=== PATIENT | female | born 1980 | race Native Hawaiian/Other Pacific Islander ===

== ENCOUNTER 2017-11-20 11:51 | Emergency (ER) | payer OTHER ==
[~2017-11-20] VITALS: Ht 162.6 cm; Wt 68.0 kg
[2017-11-20 12:03] VITALS: TEMP 98
[2017-11-20 12:53] LABS: POTASSIUM 3.9 mmol/L (3.6-5.2); SODIUM 138 mmol/L (136-145)
[2017-11-20 15:00] VITALS: BP 147/76
== END 2017-11-20 15:00 | disposition home or self-care (01) ==
LOC: ED 11:51
DX: G43.909 Migraine, unspecified, not intractable, without status migrainosus (principal); M25.561 Pain in right knee
CPT/HCPCS: 36415; 80053; 96360; 99284

== ENCOUNTER 2018-02-12 18:10 | Emergency (ER) | payer OTHER ==
[~2018-02-12] VITALS: Ht 162.6 cm; Wt 68.0 kg
[2018-02-12 18:43] VITALS: TEMP 98.2
[2018-02-12 19:27] LABS: PLATELET COUNT 377 K/uL (152-353)
[2018-02-12 19:32] LABS: POTASSIUM 3.5 mmol/L (3.6-5.2)
[2018-02-12 23:27] VITALS: BP 129/86
== END 2018-02-12 23:27 | disposition home or self-care (01) ==
LOC: ED 18:10
DX: K29.00 Acute gastritis without bleeding (principal); N83.201 Unspecified ovarian cyst, right side; K59.00 Constipation, unspecified; N92.1 Excessive and frequent menstruation with irregular cycle
CPT/HCPCS: 36415; 80053; 81000; 84702; 85027; 96374; 96375; 99284; J1170; J1885; J2175; J2405; Q9963

== ENCOUNTER 2019-07-08 21:03 | Emergency (ER) | payer OTHER ==
[~2019-07-08] VITALS: Ht 162.6 cm; Wt 72.6 kg
[2019-07-08] MEDS ORDERED: HYDR10TA47 PO (21:20)
[2019-07-08] MEDS ORDERED: GABA300C2 PO (21:21)
[2019-07-08] MEDS ORDERED: TRAMADOL HYDROC50 MG PO (21:21)
[2019-07-08 21:53] LABS: PLATELET COUNT 341 K/uL (152-353)
[2019-07-08 22:17] LABS: PARTIAL THROMBOPLASTIN TIME 27.7 SECONDS (24.5-33.6)
[2019-07-08 22:29] LABS: POTASSIUM 3.5 mmol/L (3.6-5.2); SODIUM 139 mmol/L (136-145)
[2019-07-09 00:05] VITALS: BP 154/92; TEMP 98.1
== END 2019-07-09 00:10 | disposition home or self-care (01) ==
LOC: ED 21:03
PROVIDERS: Hospitalist
DX: S16.1XXA Strain of muscle, fascia and tendon at neck level, initial encounter (principal); S46.911A Strain of unspecified muscle, fascia and tendon at shoulder and upper arm level, right arm, initial encounter
CPT/HCPCS: 36415; 80053; 82550; 83880; 84484; 85027; 85610; 85730; 93005; 96374; 96375; 99284; J1885; J2360

== ENCOUNTER 2021-07-25 21:46 | Emergency (ER) | payer OTHER ==
[~2021-07-25] VITALS: Ht 162.6 cm; Wt 72.6 kg
[~2021-07-25 21:46] MED LIST: GABA300C2 PO; HYDR10TA47 PO; TRAMADOL HYDROC50 MG PO
[2021-07-25 23:14] LABS: PLATELET COUNT 380 K/uL (152-353)
[2021-07-25 23:25] LABS: POTASSIUM 4.7 mmol/L (3.6-5.2)
[2021-07-26 02:46] VITALS: BP 148/88; TEMP 98.3
== END 2021-07-26 02:46 | disposition home or self-care (01) ==
LOC: ED 21:46
PROVIDERS: Emergency Medicine Emergency Medical Services
DX: N73.8 Other specified female pelvic inflammatory diseases (principal)
CPT/HCPCS: 36415; 80048; 81000; 81025; 85027; 87040; 87490; 87590; 96360; 96361; 96365; 96375; 99284; J0696; J1170; J1885; J2270; J2405

== ENCOUNTER 2021-09-05 08:32 | Outpatient (CLI) | payer OTHER | END 2021-09-05 19:29 | disposition home or self-care (01) | LOC: US 08:32 | PROVIDERS: ATTEND Registered Nurse | DX: R10.11 Right upper quadrant pain (principal) ==

== ENCOUNTER 2021-10-08 09:13 | Outpatient (CLI) | payer OTHER ==
[2021-10-08 10:40] LABS: PLATELET COUNT 431 K/uL (152-353)
[2021-10-08 10:47] LABS: POTASSIUM 4.2 mmol/L (3.6-5.2)
== END 2021-10-08 19:07 | disposition home or self-care (01) ==
LOC: LABW 09:13
PROVIDERS: ATTEND Internal Medicine Gastroenterology
DX: B18.2 Chronic viral hepatitis C (principal)
CPT/HCPCS: 36415; 80053; 80074; 82172; 82247; 82977; 83010; 83883; 84460; 85027; 85610; 87522

== ENCOUNTER 2022-05-01 22:30 | Emergency (ER) | payer OTHER ==
[~2022-05-01] VITALS: Ht 162.6 cm; Wt 74.4 kg
[2022-05-01 23:03] LABS: PLATELET COUNT 382 K/uL (152-353)
[2022-05-01 23:09] LABS: POTASSIUM 3.7 mmol/L (3.6-5.2)
[2022-05-02 01:55] VITALS: BP 136/85; TEMP 98.4
== END 2022-05-02 01:55 | disposition home or self-care (01) ==
LOC: ED 22:30
PROVIDERS: Emergency Medicine Emergency Medical Services
DX: R07.89 Other chest pain (principal)
CPT/HCPCS: 36415; 80053; 81025; 83735; 84484; 85027; 85379; 85610; 93005; 96361; 96374; 96375; 99285; J1885; J2405; J2930